=== PATIENT | male | born 1980 | race Caucasian/White ===

== ENCOUNTER 2017-08-12 10:37 | Emergency (ER) | payer MEDICAID, SELFPAY ==
[2017-08-12 10:39] VITALS: PULSE 101; RESP 28; TEMP 37; O2SAT 97; BMI 57.4
--- NOTE | 2017-08-12 11:05 | ED.VISSUMM ---
- ER Visit Summary Date of Service: 08/12/17 Chief Complaint: Withdrawal History of Present Illness: The patient is a 37 M of oxycodone abuse. On Suboxone. Reportedly sober for 5 years. He used heroin in the last 24 hours ?2. He states he snorted. Nontender to Suboxone. Denies going through withdrawal. He has had dry heaves. And diarrhea. Denies any fever. Physical Examination: Morbidly obese male. Vital signs are stable. He does not look septic or toxic. Pulse is 97% room air no signs of hypoxia. H EENT exam unremarkable. Neck nontender. Lungs clear to auscultation bilaterally. Heart regular rhythm no murmur. Abdomen is soft and nontender. Normal bowel sounds no peritoneal signs. Extremities he moves all 4. Calves nontender no edema no cords. Back exam unremarkable. Neurologically is awake alert no focal deficits. Test Results:none Emergency Department Course and Treatment: She will be treated with milligram of Ativan for his withdrawal. Zofran for his nausea and a liter of fluids. Treatment Plan: On repeat exam at 1312 patient is doing well. The Ativan has been helping him. He still has some withdrawal but is much better than he was when he initially arrived. He and his girlfriend and her former headaches. She knows that he take care of him. They will not restart his Suboxone for several days. And he will follow-up with his rehabilitation caregivers. Disposition: discharge Impression: Acute withdrawal Heroin abuse This note was generated with [employer] dictation software. It may contain incorrect words, spelling, and punctuation that were not noted in review of the chart prior to signing ED Disposition - Plan for ED Patient: Chief Complaint: Subst Abuse Referrals: [facility] Doctor,Out of [Primary Care Provider] -
--- NOTE | 2017-08-12 11:09 | ED.DCSUM_ITS ---
- ER Visit Summary Date of Service: 08/12/17 Chief Complaint: Withdrawal History of Present Illness: The patient is a 37 M of oxycodone abuse. On Suboxone. Reportedly sober for 5 years. He used heroin in the last 24 hours ? 2. He states he snorted. Nontender to Suboxone. Denies going through withdrawal. He has had dry heaves. And diarrhea. Denies any fever. Physical Examination: Morbidly obese male. Vital signs are stable. He does not look septic or toxic. Pulse is 97% room air no signs of hypoxia. H EENT exam unremarkable. Neck nontender. Lungs clear to auscultation bilaterally. Heart regular rhythm no murmur. Abdomen is soft and nontender. Normal bowel sounds no peritoneal signs. Extremities he moves all 4. Calves nontender no edema no cords. Back exam unremarkable. Neurologically is awake alert no focal deficits. Test Results:none Emergency Department Course and Treatment: She will be treated with milligram of Ativan for his withdrawal. Zofran for his nausea and a liter of fluids. Treatment Plan: On repeat exam at 1312 patient is doing well. The Ativan has been helping him. He still has some withdrawal but is much better than he was when he initially arrived. He and his girlfriend and her former headaches. She knows that he take care of him. They will not restart his Suboxone for several days. And he will follow-up with his rehabilitation caregivers. Disposition: discharge Impression: Acute withdrawal Heroin abuse This note was generated with [employer] dictation software. It may contain incorrect words, spelling, and punctuation that were not noted in review of the chart prior to signing ED Disposition - Plan for ED Patient: Chief Complaint: Subst Abuse Referrals: [facility] Doctor,Out of [Primary Care Provider] -
[2017-08-12] MEDS: 0.9% Normal Saline 1,000 ML 1000 ML IV (11:22)
[2017-08-12] MEDS: LORazepam 2 MG/ML Syringe 1 MG IV ×2 (11:22→11:54)
[2017-08-12] MEDS: Ondansetron 4 MG/2 ML Vial IV (11:23)
--- NOTE | 2017-08-12 13:14 | ED.DEP ---
ED Disposition - Plan for ED Patient: Disposition: Home or Assisted Living Chief Complaint: Subst Abuse Instructions: ED Withdrawal Narcotic Referrals: [facility],Out of [Primary Care Provider] - As Needed Additional Instructions: Follow-up with your rehabilitation providers. Plenty of fluids and rest. Hold your Suboxone for the next 3 days.
[2017-08-12 13:59] VITALS: PULSE 87; RESP 22; O2SAT 96
== END 2017-08-12 14:01 | disposition home or self-care (01) ==
PROVIDERS: Emergency Provider Emergency Medicine
DX: F11.23 Opioid dependence with withdrawal (principal); K52.1 Toxic gastroenteritis and colitis; E66.01 Morbid (severe) obesity due to excess calories; Z79.899 Other long term (current) drug therapy
CPT/HCPCS: 96374; 96375; 96376; 99285; J7030; A4216; J2405